=== PATIENT | male | born 1950 | race African-American/Black ===

== ENCOUNTER → 2023-12-09 | Emergency (ER) | payer OTHER ==
[2023-12-09 10:55] LABS: Absolute Eosinophils 0.1 K/uL (0-0.5); Absolute Lymphocytes (CBC) 0.9 K/uL (0.7-4.9); Absolute Monocytes 0.7 K/uL (0.1-1.3); Absolute Neutrophil 4.5 K/uL (1.8-8.0); Basophils % 0.7 % (0-1.3); Eosinophils % 1.8 % (0-4.4); Hematocrit 31.1 % (39.6-49.0); Hemoglobin 10.4 g/dL (13.6-17.9); Lymphocytes % 14.5 % (15.3-44.8); MCHC 33.3 g/dL (32.0-36.0); MCV 96.1 fL (80-100); MPV 6.9 fL (7.6-11.3); Monocytes % 11.7 % (3.3-12.3); Neutrophils % 71.3 % (41.7-73.7); Nucleated Red Blood Cells % 0.1 % (0-0); Platelets 214 thou/uL (152-406); RBC Red Blood Cell Count 3.23 M/uL (4.33-5.43); Red Cell Distribution Width 16.1 % (12.1-15.2)
[2023-12-09 11:12] LABS: Anion Gap 8.4 mEq/L (5.0-15.0); Potassium 4.4 mEq/L (3.5-5.1); Troponin High Sensitivity 20.4 pg/mL (<58.9)
--- NOTE | 2023-12-09 11:39 | RAD REPORT ---
EXAM DESCRIPTION: CT - Head C Spine Dereck Carrillo - 12/09/2023 11:19 am CLINICAL HISTORY: Head and neck injury with chest and abdominal pain status post fall. Head and neck pain . TECHNIQUE: Computed axial tomography of the head and cervical spine was obtained Computed axial tomography of the chest, abdomen and pelvis was obtained. 100 cc Isovue-300 was given intravenously coronal and sagittal reconstruction was performed. All CT scans are performed using dose optimization technique as appropriate and may include automated exposure control or mA/KV adjustment according to patient size. COMPARISON: None FINDINGS: An intracranial bleed is not seen. The ventricles are normal in caliber. An extra-axial fl uid collection is not noted. Fluid within the sinuses is not seen A cervical fracture is not seen. No dislocation is seen. A mediastinal hematoma is not noted. A pleural effusion is not present. A lung contusion is not seen. The liver, spleen, pancreas, adrenals, kidneys and bladder do not demonstrate an acute traumatic inju ry 4.7 centimeter hepatic cyst. Right nephrectomy 3 x 0.8 centimeter low-density area between the liver and right renal fossa IMPRESSION: No acute intracranial abnormality is seen A cervical fracture is not visualized. If the patient continues have symptoms to suggest intracranial /spinal cord pathology then MRI would be recommended. No acute traumatic injury involving the chest, and pelvis 3 x 0.8 centimeter low-density area between the liver and right renal fossa most likely a postsurgica l change related to the right nephrectomy. An acute traumatic injury is doubtful. If the patient has clinical symptoms to suggest acute pathology in this region then a followup short-term ultrasound cou ld be obtained for re-evaluation
--- NOTE | 2023-12-09 11:55 | ER ---
Nurse's Notes [facility] Name: Raudel Stark Age: 73 yrs Sex: Male : 1950 Arrival Date: 12/09/2023 Time: 10:28 Bed 8 Private MD: Diagnosis: Chest contusion, fall, closed head injury, neck strain Presentation: 12/08 10:31 Chief complaint: EMS states: Fell backwards onto metal scaffold, c/o pain in right hb shoulder, right upper back, and right lateral chest wall 10/10. Unknown LOC, c collar and backboard in place. Coronavirus screen: At this time, the client does not indicate any symptoms associated with coronavirus-19. Ebola Screen: No symptoms or risks identified at this time. Initial Sepsis Screen: Does the patient meet any 2 criteria? No. Patient's initial sepsis screen is negative. Does the patient have a suspected source of infection? No. Patient's initial sepsis screen is negative. Risk Assessment: Do you want to hurt yourself or someone else? Patient reports no desire to harm self or others. Onset of symptoms was December 09, 2023. 10:31 Method Of Arrival: EMS: [facility] 10:31 Acuity: RHETT 2 hb 10:32 Care prior to arrival: Cervical collar in place. Placed on backboard. hb Triage Assessment: 10:34 General: Appears uncomfortable, Behavior is restless. Pain: Pain currently is 10 out of hb 10 on a pain scale. Neuro: Level of Consciousness is awake, alert, obeys commands, confused, Oriented to person, place. Cardiovascular: Patient's skin is warm and dry. Respiratory: Respiratory effort is even, unlabored, Respiratory pattern is regular, symmetrical. Musculoskeletal: Reports pain in right lateral chest, right shoulder, right upper back. Historical: - Allergies: 10:34 No Known Allergies; hb - Home Meds: 10:34 None [Active]; hb - PMHx: 10:34 None; hb - PSHx: 10:34 None; hb - Immunization history:: Adult Immunizations up to date. - Social history:: Smoking status: Patient denies any tobacco usage or history of. Screenin:34 [facility] ED Fall Risk Assessment (Adult) History of falling in the last 3 months, ld1 including since admission Yes- physiologic fall (2 pts) Confusion or Disorientation No (0 pts) Intoxicated or Sedated No (0 pts). Abuse screen: Denies threats or abuse. Denies injuries from another. Nutritional screening: No deficits noted. Tuberculosis screening: No symptoms or risk factors identified. Assessment: 10:34 General: Appears in no apparent distress. comfortable, Behavior is calm, cooperative, ld1 appropriate for age. General: Appears Behavior is. Pain: Complains of pain in face and chest Pain does not radiate. Pain currently is 8 out of 10 on a pain scale. Quality of pain is described as heavy, sharp, Pain began suddenly, Is continuous. Neuro: Level of Consciousness is awake, alert, obeys commands, Oriented to person, place, time, situation. Cardiovascular: Capillary refill < 3 seconds Patient's skin is warm and dry. Cardiovascular: Rhythm is sinus rhythm. Respiratory: Airway is patent Respiratory effort is even, unlabored. GI: Abdomen is flat, non-distended. : No signs and/or symptoms were reported regarding the genitourinary system. EENT: No signs and/or symptoms were reported regarding the EENT system. Derm: No signs and/or symptoms reported regarding the dermatologic system. Musculoskeletal: No signs and/or symptoms reported regarding the musculoskeletal system. Vital Signs: 10:31 BP 160 / 117; Pulse 76; Resp 15; Temp 97.7(TE); Pulse Ox 100% on R/A; Weight 68.04 kg; hb Height 5 ft. 9 in. ; Pain 10/10; 10:34 BP 160 / 107; Pulse 73; Resp 18; Pulse Ox 100% on R/A; Pain 8/10; ld1 10:56 BP 150 / 112; Pulse 79; Resp 18; Pulse Ox 100% on R/A; ld1 12:15 BP 165 / 102; Pulse 68; Resp 20 S; Pulse Ox 100% on R/A; as6 10:31 Body Mass Index 22.15 (68.04 kg, 175.26 cm) hb 10:31 Pain Scale: Adult hb 10:34 Pain Scale: Adult ld1 ED Course: 10:30 Patient arrived in ED. sp3 10:30 Adilene Erwin MD is Attending Physician. sp3 10:32 Karen Regalado RN is Primary Nurse. ld1 10:34 Triage completed. hb 10:34 Arm band placed on. hb 10:34 Patient has correct armband on for positive identification. Placed in gown. Bed in low ld1 position. Call light in reach. Side rails up X2. Door closed. Noise minimized. Warm blanket given. 10:35 Client placed on continuous cardiac and pulse oximetry monitoring. NIBP monitoring hb applied. manager service desk on. Pulse ox on. NIBP on. 10:55 Basic Metabolic Panel Sent. ld1 10:55 CBC with Diff Sent. ld1 10:55 Troponin High Sensitivity Sent. ld1 10:56 Inserted saline lock: 20 gauge in right antecubital area, using aseptic technique. ld1 Blood collected. 11:21 CT Traumagram (Head C Spine CAP W Con) In Process Unspecified. EDMS 12:15 Provided Education on: use of IS. as6 12:15 No provider procedures requiring assistance completed. IV discontinued, intact, as6 bleeding controlled, No redness/swelling at site. Pressure dressing applied. 12:16 Incentive spirometer education provided by an Emergency Department nursing staff member.as6 Administered Medications: No medications were administered Medication: 12:15 VIS not applicable for this client. as6 Outcome: 11:54 Discharge ordered by . marian 12:16 Discharged to home ambulatory, with significant other, as6 12:16 Condition: stable 12:16 Discharge instructions given to patient, Instructed on discharge instructions, follow up and referral plans. medication usage, Demonstrated understanding of instructions, follow-up care, medications, Prescriptions given X 1, 12:19 Patient left the ED. as6 Signatures: Dispatcher [employer] EDMS Taisha Mooney RN RN Karen Regalado RN RN ld1 Adilene Erwin MD MD sp3 Rodrgio Dickinson RN RN as6 Corrections: (The following items were deleted from the chart) 10:49 10:31 Acuity: RHETT 3 hb hb 10:50 10:31 Chief complaint: EMS states: Fell backwards onto metal scaffold, c/o pain in hb right shoulder, right upper back, and right lateral chest wall 10. Unknown LOC, c collar and backboard in place. hb 10:50 10:34 Neuro: Level of Consciousness is awake, alert, obeys commands, Oriented to hb person, place, time, situation, hb
--- NOTE | 2023-12-09 11:55 | EDPHYS ---
Physician Documentation [facility] Name: Raudel Stark Age: 73 yrs Sex: Male : 1950 Arrival Date: 12/09/2023 Time: : Bed 8 Private MD: ED Physician Adilene Erwin HPI: 12/08 10:33 This 73 yrs old Male presents to ER via Unassigned with complaints of Fall Injury. sp3 10:33 73-year-old male who states he has no past medical history presents via EMS for a sp3 mechanical fall on scaffolding while at work. Patient complains of right-sided rib and chest pain extending up into his right shoulder and scapula and into his neck. Possible loss of consciousness reported. EMS states that patient has been mildly confused. No other symptoms reported and vital signs have been normal. Review of systems negative for headache, facial pain, back pain, extremity pain, or any other aspects of ROS at this time.. Historical: - Allergies: 10:34 No Known Allergies; hb - Home Meds: 10:34 None [Active]; hb - PMHx: 10:34 None; hb - PSHx: 10:34 None; hb - Immunization history:: Adult Immunizations up to date. - Social history:: Smoking status: Patient denies any tobacco usage or history of. ROS: 10:34 Constitutional: Negative for fever, chills, and weight loss, Eyes: Negative for injury, sp3 pain, redness, and discharge, Neck: Negative for injury, pain, and swelling, Cardiovascular: Negative for chest pain, palpitations, and edema, Respiratory: Negative for shortness of breath, cough, wheezing, and pleuritic chest pain, Abdomen/GI: Negative for abdominal pain, nausea, vomiting, diarrhea, and constipation, Psych: Negative for depression, anxiety, suicide ideation, homicidal ideation, and hallucinations, Allergy/Immunology: Negative for hives, rash, and allergies, Endocrine: Negative for neck swelling, polydipsia, polyuria, polyphagia, and marked weight changes, 10:34 All other systems are negative, Exam: 10:35 Constitutional: This is a well developed, well nourished patient who is awake, alert, sp3 and in no acute distress. Head/Face: Normocephalic, atraumatic. Eyes: Pupils equal round and reactive to light, extra-ocular motions intact. Lids and lashes normal. Conjunctiva and sclera are non-icteric and not injected. Cornea within normal limits. Periorbital areas with no swelling, redness, or edema. Cardiovascular: Regular rate and rhythm with a normal S1 and S2. No gallops, murmurs, or rubs. Normal PMI, no JVD. No pulse deficits. Respiratory: Lungs have equal breath sounds bilaterally, clear to auscultation and percussion. No rales, rhonchi or wheezes noted. No increased work of breathing, no retractions or nasal flaring. Abdomen/GI: Soft, non-tender, with normal bowel sounds. No distension or tympany. No guarding or rebound. No evidence of tenderness throughout. Skin: Warm, dry with normal turgor. Normal color with no rashes, no lesions, and no evidence of cellulitis. Neuro: Awake and alert, GCS 15, oriented to person, place, time, and situation. Cranial nerves II-XII grossly intact. Motor strength 5/5 in all extremities. Sensory grossly intact. Cerebellar exam normal. Normal gait. Psych: Awake, alert, with orientation to person, place and time. Behavior, mood, and affect are within normal limits. 10:35 Chest/axilla: Patient is pain to palpation on the right shoulder and right anterior ribs. No difficulty breathing, excessive muscle use, tracheal deviation or any other signs or symptoms of pneumothorax on examination. . 11:55 ECG was reviewed by the Attending Physician. EKG demonstrates normal sinus rhythm at 72 sp3 bpm with normal levels, normal QRS, normal axis, normal axis ST segments without evidence of acute ischemia. Vital Signs: 10:31 BP 160 / 117; Pulse 76; Resp 15; Temp 97.7(TE); Pulse Ox 100% on R/A; Weight 68.04 kg; hb Height 5 ft. 9 in. ; Pain 10/10; 10:34 BP 160 / 107; Pulse 73; Resp 18; Pulse Ox 100% on R/A; Pain 8/10; ld1 10:56 BP 150 / 112; Pulse 79; Resp 18; Pulse Ox 100% on R/A; ld1 12:15 BP 165 / 102; Pulse 68; Resp 20 S; Pulse Ox 100% on R/A; as6 10:31 Body Mass Index 22.15 (68.04 kg, 175.26 cm) hb 10:31 Pain Scale: Adult hb 10:34 Pain Scale: Adult ld1 MDM: 10:30 Patient medically screened. sp3 10:36 Data reviewed: vital signs, nurses notes, lab test result(s), radiologic studies. ED sp3 course: 73-year-old male with significant fall on scaffolding. We will obtain full trauma gram and general labs to assess. Vital signs are normal and patient is not hypotensive. Disposition pending workup and patient course. I do not believe patient had a medical prodrome to the event and this was truly mechanical in nature.. 11:45 ED course: Labs and all CTs are within normal limits. I am not highly suspicious for sp3 any critical traumatic injury. Patient has chest contusions. We will discharge patient with incentive spirometer, NSAIDs and follow-up with his PCP.. 12/08 10:31 Order name: Basic Metabolic Panel; Complete Time: 11:13 sp3 12/08 10:31 Order name: CBC with Diff; Complete Time: 11:13 sp3 12/08 10:31 Order name: Troponin High Sensitivity; Complete Time: 11:13 sp3 12/08 10:31 Order name: CT Traumagram (Head C Spine CAP W Con); Complete Time: 11:41 sp3 12/08 11:55 Order name: INCENTIVE SPIROMETRY sp3 12/08 10:31 Order name: EKG; Complete Time: 10:31 sp3 12/08 10:31 Order name: Labs collected and sent; Complete Time: 10:55 sp3 12/08 10:31 Order name: EKG - Nurse/Tech; Complete Time: 10:55 sp3 Administered Medications: No medications were administered Disposition Summary: 12/09/23 11:54 Discharge Ordered Notes: Location: Home sp3 Condition: Stable sp3 Diagnosis - Chest contusion, fall, closed head injury, neck strain sp3 Followup: sp3 - With: Private Physician - When: Upon discharge from the Emergency Department - Reason: Continuance of care Discharge Instructions: - Discharge Summary Sheet sp3 - Chest Contusion, Adult sp3 - Head Injury, Adult sp3 Forms: - Medication Reconciliation Form sp3 - Thank You Letter sp3 - Antibiotic Education sp3 - Prescription Opioid Use sp3 - Patient Portal Instructions sp3 - Leadership Thank You Letter sp3 Prescriptions: - Diclofenac Sodium 75 mg Oral Tablet Sustained Release - take 1 tablet ORAL route 2 times per day; 30 tablet; Refills: 0, Product sp3 Selection Permitted Signatures: Dispatcher [employer] Taisha Collier RN RN hb Patel, Setul, MD MD sp3
[2023-12-09 13:02] VITALS: BP 165/102; TEMP 97.7; O2SAT 100
--- NOTE | 2023-12-09 17:01 | EKG ---
Test Date: 2023-12-09 Test Time: 09:52:36 Installation Helper: Shad SI MEASUREMENT RESULTS: Intervals: Rate: 72 IL: 104 QRSD: 78 QT: 388 QTc: 424 [place]: P: 74 IL: 104 QRS: 52 T: 52 INTERPRETIVE STATEMENTS: Sinus rhythm with short [place] Otherwise normal ECG No previous ECG available for comparison Electronically Signed On 12-09-23 16:59:40 CDT by Jamil Howard
== END ==
LOC: ER 10:28
DX: S20.211A Contusion of right front wall of thorax, initial encounter (principal); S16.1XXA Strain of muscle, fascia and tendon at neck level, initial encounter; W18.39XA Other fall on same level, initial encounter
CPT/HCPCS: 93005; 85025; 80048; 36415; 84484; 70450; 72125; 71260; 74177; Q9967; 99284